=== PATIENT | female | born 1935 | race Caucasian/White ===

== ENCOUNTER 2019-01-13 11:27 | Inpatient (IN) | payer MEDICARE, BC ==
[~2019-01-13] VITALS: Ht 165.1 cm; Wt 49.9 kg
[2019-01-13] MEDS ORDERED: methylPREDNISolone SOD SUCC 125 MG/2 ML VL IV ONE (11:45)
[2019-01-13] MEDS ORDERED: ALBUTEROL SULF 2.5 MG/0.5ML(0.5%) NEB SOLN HHN ONE (11:45)
[2019-01-13] MEDS ORDERED: IPRATROPIUM BROM 0.5 MG/2.5ML INH SOL HHN ONE (11:45)
[2019-01-13 12:32] LABS: Basophils # (auto) 0 uL; Eosinophils # (auto) 0 uL; Monocytes # (auto) 0.5 uL; Neutrophils # (auto) 3.4 uL; White Blood Cell 4.9 10^3/uL (4.4-10.8)
[2019-01-13 12:33] LABS: Basophils % (auto) 0.8 % (0.0-2.0); Eosinophils % (auto) 0.6 % (0.0-7.0); Hematocrit 36.9 % (36.0-46.0); Hemoglobin 13.1 g/dL (12.2-16.2); Lymphocytes % (auto) 19.4 % (10.0-50.0); Mean Corpuscular Hemoglobin 35.2 pg (28.0-32.0); Mean Corpuscular Hgb Conc. 35.7 g/dL (32.0-36.0); Mean Corpuscular Volume 98.7 fL (80.0-100.0); Monocytes % (auto) 10.7 % (0.0-12.0); Neutrophils % (auto) 68.5 % (37.0-80.0); Platelet Count (auto) 239 10^3/uL (140-450); Red Blood Cells 3.74 10^6/uL (4.0-5.20); Red Cell Distribution Width 13.9 % (11.8-14.3)
[2019-01-13 12:52] LABS: Alanine Aminotransferase 19 U/L (13-56); Anion Gap 6 (5-15); Aspartate Aminotransferase 14 U/L (15-37); Blood Urea Nitrogen 11 mg/dL (7-18); Calcium 9.1 mg/dL (8.5-10.1); Carbon Dioxide 28 mmol/L (21-32); Chloride 98 mmol/L (98-107); GFR African American 136 mL/min; GFR Non-African American 112 mL/min; Glucose 84 mg/dL (74-106); Potassium 4.1 mmol/L (3.5-5.1); Sodium 132 mmol/L (136-145)
[2019-01-13 12:57] LABS: Alkaline Phosphatase 89 U/L (45-117); Bilirubin, Total 0.3 mg/dL (0.2-1.0); Total Protein 7.7 g/dL (6.4-8.2)
[2019-01-13 13:33] LABS: Urine WBC None Seen /hpf (0 - 5)
[2019-01-13 13:40] LABS: Urine Bacteria NONE SEEN /hpf (None Seen); Urine Blood Negative /uL (Negative); Urine Specific Gravity 1.005 (1.001-1.035)
[2019-01-13] MEDS ORDERED: TEMAZEPAM 15 MG CAP PO PRN (13:45)
[2019-01-13] MEDS ORDERED: PROMETHAZINE HCL 25 MG/ML 1ML IV PRN (13:45)
[2019-01-13] MEDS ORDERED: LACTULOSE 20Gm/30ML SOLN PO PRN (13:45)
[2019-01-13] MEDS ORDERED: ACETAMINOPHEN 500 MG TAB PO PRN (13:45)
[2019-01-13] MEDS ORDERED: NITROGLYCERIN 0.4 MG SL TAB SL PRN (13:45)
[2019-01-13] MEDS ORDERED: ALBUTEROL SULF 2.5 MG/0.5ML(0.5%) NEB SOLN NEB PRN (13:45)
[2019-01-13] MEDS ORDERED: MORPHINE SULF INJ 2 MG/ML SYRINGE 1ML IV PRN (13:45)
[2019-01-13] MEDS ORDERED: traMADol HCL 50 MG TAB PO PRN (13:45)
[2019-01-13] MEDS: DOXYCYCLINE 100MG/250ML 250 ML IV SCH (14:14)
[2019-01-13] MEDS: SODIUM CHLORIDE 0.9% 1,000 ML IV SCH (14:14)
[2019-01-13 15:06] VITALS: BP 126/74
[2019-01-13] MEDS: LORazepam 0.5 MG TAB PO PRN (16:46)
[2019-01-13 17:20] VITALS: BP 122/74
[2019-01-13 17:27] VITALS: BP 122/74
[2019-01-13] MEDS: methylPREDNISolone SOD SUCC 40 MG/ML VL IV SCH (17:34)
[2019-01-13] MEDS ORDERED: BUDE2SUS3 IN (17:53)
[2019-01-13] MEDS ORDERED: ALPR0.254 PO (17:53)
[2019-01-13] MEDS ORDERED: MIRT30TA OR (17:53)
[2019-01-13] MEDS ORDERED: METH118C PO (17:53)
[2019-01-13] MEDS ORDERED: ALBU2TAB4 PO (17:53)
[2019-01-13] MEDS ORDERED: POTA1TAB61 PO (17:53)
[2019-01-13] MEDS ORDERED: DILT30TA24 PO (17:53)
[2019-01-13] MEDS ORDERED: MULT-228 PO (17:53)
[2019-01-13] MEDS ORDERED: OMEP20TA PO (17:53)
[2019-01-13] MEDS ORDERED: TIOTCAP IN (17:53)
[2019-01-13] MEDS: ALBUTEROL SULF 2.5 MG/0.5ML(0.5%) NEB SOLN NEB SCH (18:56)
[2019-01-13] MEDS: IPRATROPIUM BROM 0.5 MG/2.5ML INH SOL NEB SCH (18:56)
[2019-01-13 22:24] VITALS: BP 104/64
[2019-01-14] MEDS: methylPREDNISolone SOD SUCC 40 MG/ML VL IV SCH ×5 (00:15→23:43)
[2019-01-14] MEDS: LORazepam 0.5 MG TAB PO PRN ×3 (00:32→16:48)
[2019-01-14] MEDS: ALBUTEROL SULF 2.5 MG/0.5ML(0.5%) NEB SOLN NEB SCH ×4 (00:53→19:46)
[2019-01-14] MEDS: IPRATROPIUM BROM 0.5 MG/2.5ML INH SOL NEB SCH ×4 (00:53→19:46)
[2019-01-14 05:06] VITALS: BP 139/87
[2019-01-14] MEDS: DOXYCYCLINE 100MG/250ML 250 ML IV SCH ×2 (06:33→15:18)
[2019-01-14] MEDS: SODIUM CHLORIDE 0.9% 1,000 ML IV SCH ×2 (06:34→16:47)
[2019-01-14 09:09] VITALS: BP 146/89
[2019-01-14] MEDS: ENOXAPARIN SOD 40 MG/0.4 ML SYRINGE SC SCH (09:42)
[2019-01-14] MEDS: PANTOPRAZOLE 40 MG TAB PO SCH (09:42)
[2019-01-14 13:02] VITALS: BP 142/97
[2019-01-14 17:00] VITALS: BP 142/94
[2019-01-14 22:38] VITALS: BP 141/89
[2019-01-15] MEDS: IPRATROPIUM BROM 0.5 MG/2.5ML INH SOL NEB SCH ×4 (01:09→18:27)
[2019-01-15] MEDS: ALBUTEROL SULF 2.5 MG/0.5ML(0.5%) NEB SOLN NEB SCH ×4 (01:09→18:27)
[2019-01-15] MEDS: DOXYCYCLINE 100MG/250ML 250 ML IV SCH ×2 (01:11→15:18)
[2019-01-15] MEDS: LORazepam 0.5 MG TAB PO PRN ×3 (01:24→16:05)
[2019-01-15 04:53] VITALS: BP 133/92
[2019-01-15] MEDS: methylPREDNISolone SOD SUCC 40 MG/ML VL IV SCH ×4 (05:38→23:48)
[2019-01-15] MEDS: SODIUM CHLORIDE 0.9% 1,000 ML IV SCH ×2 (05:44→18:37)
[2019-01-15 09:09] VITALS: BP 127/72
[2019-01-15] MEDS: PANTOPRAZOLE 40 MG TAB PO SCH (09:26)
[2019-01-15] MEDS: ENOXAPARIN SOD 40 MG/0.4 ML SYRINGE SC SCH (09:27)
[2019-01-15 13:00] VITALS: BP 139/96
[2019-01-15 16:14] VITALS: BP 152/94
[2019-01-15 21:30] VITALS: BP 121/91
[2019-01-16] MEDS: ALBUTEROL SULF 2.5 MG/0.5ML(0.5%) NEB SOLN NEB SCH ×4 (01:25→18:19)
[2019-01-16] MEDS: IPRATROPIUM BROM 0.5 MG/2.5ML INH SOL NEB SCH ×4 (01:25→18:19)
[2019-01-16] MEDS: DOXYCYCLINE 100MG/250ML 250 ML IV SCH ×2 (02:10→13:55)
[2019-01-16 05:00] VITALS: BP 133/94
[2019-01-16] MEDS: methylPREDNISolone SOD SUCC 40 MG/ML VL IV SCH ×3 (05:17→21:55)
[2019-01-16] MEDS: LORazepam 0.5 MG TAB PO PRN ×2 (06:44→13:56)
[2019-01-16 06:48] LABS: Basophils # (auto) 0 uL; Basophils % (auto) 0.1 % (0.0-2.0); Eosinophils # (auto) 0 uL; Hematocrit 40.5 % (36.0-46.0); Hemoglobin 14.1 g/dL (12.2-16.2); Lymphocytes # (auto) 0.6 uL; Lymphocytes % (auto) 7.5 % (10.0-50.0); Mean Corpuscular Hgb Conc. 34.7 g/dL (32.0-36.0); Mean Corpuscular Volume 94.9 fL (80.0-100.0); Monocytes # (auto) 0.5 uL; Neutrophils # (auto) 6.6 uL; Neutrophils % (auto) 85.4 % (37.0-80.0); Platelet Count (auto) 279 10^3/uL (140-450); Red Blood Cells 4.26 10^6/uL (4.0-5.20); Red Cell Distribution Width 14.1 % (11.8-14.3); White Blood Cell 7.7 10^3/uL (4.4-10.8)
[2019-01-16 07:23] LABS: Calcium 9.2 mg/dL (8.5-10.1); Potassium 3.6 mmol/L (3.5-5.1)
[2019-01-16 07:26] LABS: BUN/Creatinine Ratio 32.3
[2019-01-16 08:00] VITALS: BP 133/95
[2019-01-16] MEDS: SODIUM CHLORIDE 0.9% 1,000 ML IV SCH ×2 (08:23→21:55)
[2019-01-16] MEDS: ENOXAPARIN SOD 40 MG/0.4 ML SYRINGE SC SCH (09:19)
[2019-01-16] MEDS: PANTOPRAZOLE 40 MG TAB PO SCH (09:19)
[2019-01-16 12:27] VITALS: BP 151/94
[2019-01-16 14:48] VITALS: BP 151/94
[2019-01-16 16:56] VITALS: BP 153/93
[2019-01-16 21:44] VITALS: BP 130/81
[2019-01-17] MEDS: ALBUTEROL SULF 2.5 MG/0.5ML(0.5%) NEB SOLN NEB SCH ×4 (00:17→18:19)
[2019-01-17] MEDS: IPRATROPIUM BROM 0.5 MG/2.5ML INH SOL NEB SCH ×4 (00:17→18:19)
[2019-01-17] MEDS: DOXYCYCLINE 100MG/250ML 250 ML IV SCH ×2 (01:25→13:31)
[2019-01-17 04:22] VITALS: BP 142/107
[2019-01-17] MEDS: LORazepam 0.5 MG TAB PO PRN (04:33)
[2019-01-17] MEDS: methylPREDNISolone SOD SUCC 40 MG/ML VL IV SCH ×3 (05:05→21:04)
[2019-01-17 07:47] LABS: BUN/Creatinine Ratio 39.6; Calcium 8.6 mg/dL (8.5-10.1); INR 1.02 (0.9-1.15); Partial Thromboplastin Time 22.9 sec (23.78-33.04); Potassium 3.6 mmol/L (3.5-5.1); Prothrombin Time 10.9 sec (9.27-12.13)
[2019-01-17 08:00] VITALS: BP 133/89
[2019-01-17] MEDS: SODIUM CHLORIDE 0.9% 1,000 ML IV SCH (08:48)
[2019-01-17 09:00] VITALS: BP 146/94
[2019-01-17] MEDS: PANTOPRAZOLE 40 MG TAB PO SCH (09:33)
[2019-01-17] MEDS ORDERED: LORazepam 2MG/ML-1ML VIAL IV ONE (11:00)
[2019-01-17 13:00] VITALS: BP 133/89
[2019-01-17 17:00] VITALS: BP 156/89
[2019-01-17] MEDS ORDERED: METH-928 PO (18:37)
[2019-01-17] MEDS ORDERED: ASCO500T11 PO (18:37)
[2019-01-17] MEDS: METHENAMINE HIPPURATE 1 GM PO SCH (21:04)
[2019-01-17] MEDS: LORazepam 2MG/ML-1ML VIAL IV PRN (21:05)
[2019-01-17] MEDS: DOXYCYCLINE 100 MG TAB/CAP PO SCH (21:05)
[2019-01-17 21:44] VITALS: BP 147/96
[2019-01-17] MEDS ORDERED: MIRTAZAPINE 30 MG TAB PO SCH (22:00)
[2019-01-18] MEDS: ALBUTEROL SULF 2.5 MG/0.5ML(0.5%) NEB SOLN NEB SCH ×3 (00:12→13:10)
[2019-01-18] MEDS: IPRATROPIUM BROM 0.5 MG/2.5ML INH SOL NEB SCH ×3 (00:12→13:10)
[2019-01-18] MEDS: SODIUM CHLORIDE 0.9% 1,000 ML IV SCH (00:56)
[2019-01-18 05:03] VITALS: BP 146/76
[2019-01-18] MEDS: methylPREDNISolone SOD SUCC 40 MG/ML VL IV SCH (05:18)
[2019-01-18] MEDS: LORazepam 2MG/ML-1ML VIAL IV PRN (05:18)
[2019-01-18 09:00] VITALS: BP 129/79
[2019-01-18] MEDS ORDERED: POTASSIUM CHL 10 Meq TABLET PO SCH (10:00)
[2019-01-18] MEDS ORDERED: NICOTINE 7MG/24HR TOPICAL PATCH TD SCH (10:00)
[2019-01-18] MEDS ORDERED: DILTIAZEM 300 MG PO SCH (10:00)
[2019-01-18] MEDS ORDERED: ASCORBIC ACID 500 MG TAB PO SCH (10:00)
[2019-01-18] MEDS: METHENAMINE HIPPURATE 1 GM PO SCH (10:00)
[2019-01-18] MEDS ORDERED: MULTIPLE VITAMIN TAB PO SCH (10:00)
[2019-01-18] MEDS: DOXYCYCLINE 100 MG TAB/CAP PO SCH (10:41)
[2019-01-18] MEDS: PANTOPRAZOLE 40 MG TAB PO SCH (10:42)
[2019-01-18 13:00] VITALS: BP 150/98
== END 2019-01-18 16:27 | DRG 189 ==
LOC: ER 11:36 → TELE 13:44 → TELE-CENTR 17:17
PROVIDERS: ADMIT Internal Medicine; ATTEND Internal Medicine
DX: J96.20 Acute and chronic respiratory failure, unspecified whether with hypoxia or hypercapnia (principal); E87.1 Hypo-osmolality and hyponatremia; J98.11 Atelectasis; J44.1 Chronic obstructive pulmonary disease with (acute) exacerbation; J43.9 Emphysema, unspecified; I10 Essential (primary) hypertension; I70.0 Atherosclerosis of aorta; Z66 Do not resuscitate; F41.9 Anxiety disorder, unspecified; F17.210 Nicotine dependence, cigarettes, uncomplicated; G89.4 Chronic pain syndrome; Z90.710 Acquired absence of both cervix and uterus; Z99.81 Dependence on supplemental oxygen; Z90.89 Acquired absence of other organs; Z98.42 Cataract extraction status, left eye; Z98.41 Cataract extraction status, right eye
CPT/HCPCS: 36415; 71045; 71250; 80048; 80053; 81001; 83605; 83735; 83880; 84484; 85025; 85610; 85730; 87040; 87070; 87205; 93005; 94640; 94644; 94761; 96361; 96374; 96375; 97116; 97163; 97530; G0378; J3490

== ENCOUNTER 2019-07-20 10:44 | Inpatient (IN) | payer MEDICARE, BC ==
[~2019-07-20] VITALS: Ht 165.1 cm; Wt 48.6 kg
[~2019-07-20 10:44] MED LIST: ALBU2TAB4 PO; ALPR0.254 PO; ASCO500T11 PO; BUDE2SUS3 IN; DILT30TA24 PO; METH-928 PO; MIRT30TA OR; MULT-228 PO; OMEP20TA PO; POTA1TAB61 PO; TIOTCAP IN
[2019-07-20 12:19] LABS: Urine WBC None Seen /hpf (0 - 5)
[2019-07-20 12:39] LABS: Basophils # (auto) 0 uL; Basophils % (auto) 0.7 % (0.0-2.0); Eosinophils # (auto) 0.1 uL; Hematocrit 37.6 % (36.0-46.0); Hemoglobin 13.3 g/dL (12.2-16.2); Lymphocytes # (auto) 0.6 uL; Lymphocytes % (auto) 11.9 % (10.0-50.0); Mean Corpuscular Hemoglobin 33.3 pg (28.0-32.0); Mean Corpuscular Hgb Conc. 35.3 g/dL (32.0-36.0); Mean Corpuscular Volume 94.3 fL (80.0-100.0); Monocytes # (auto) 0.5 uL; Monocytes % (auto) 10.1 % (0.0-12.0); Neutrophils # (auto) 3.9 uL; Neutrophils % (auto) 76.3 % (37.0-80.0); Nucleated Red Blood Cells % 0.1 %; Platelet Count (auto) 280 10^3/uL (140-450); Red Blood Cells 3.99 10^6/uL (4.0-5.20); Red Cell Distribution Width 14.5 % (11.8-14.3)
[2019-07-20 12:54] LABS: INR 0.97 (0.9-1.15); Partial Thromboplastin Time 25.8 sec (23.64-32.05)
[2019-07-20 12:55] LABS: Albumin 3.6 g/dL (3.4-5.0); Calcium 9.2 mg/dL (8.5-10.1)
[2019-07-20 12:59] LABS: Total Protein 7.6 g/dL (6.4-8.2)
[2019-07-20 13:03] LABS: Urine Bacteria NONE SEEN /hpf (None Seen); Urine Blood Negative /uL (Negative); Urine Specific Gravity 1.007 (1.001-1.035)
[2019-07-20 13:03] LABS: Bilirubin, Total 0.3 mg/dL (0.2-1.0)
[2019-07-20] MEDS ORDERED: HYDROcodone-ACET 5/325MG TAB PO PRN (15:00)
[2019-07-20] MEDS ORDERED: ASPirin-EC 81 mg tab PO ONE (15:00)
[2019-07-20] MEDS ORDERED: ACETAMINOPHEN 500 MG TAB PO PRN (15:00)
[2019-07-20] MEDS ORDERED: MORPHINE SULF INJ 2 MG/ML SYRINGE 1ML IV PRN ×2 (15:00)
[2019-07-20] MEDS ORDERED: NITROGLYCERIN 0.4 MG SL TAB SL PRN (15:00)
[2019-07-20] MEDS ORDERED: ALPRAZolam 0.25 MG TAB PO PRN (15:00)
[2019-07-20] MEDS ORDERED: LORazepam 2MG/ML-1ML VIAL IV ONE (15:00)
[2019-07-20] MEDS ORDERED: methylPREDNISolone SOD SUCC 125 MG/2 ML VL IV ONE (15:00)
[2019-07-20] MEDS ORDERED: ONDANSETRON HCL 4 MG/2 ML VIAL IV PRN (15:00)
[2019-07-20] MEDS ORDERED: IPRATROPIUM BROM 0.5 MG/2.5ML INH SOL NEB ONE (16:00)
[2019-07-20] MEDS ORDERED: ALBUTEROL SULF 2.5 MG/0.5ML(0.5%) NEB SOLN NEB ONE (16:00)
--- NOTE | 2019-07-20 17:26 | NUR ---
Telemetry admit from ER [facility] admitted to Telemetry unit after SBAR received via hand off tool. Patient oriented to CARMELA BEARD RN primary RN, unit, room 221B, bed, and unit policies regarding patient care and visiting hours. Patient now on continuous telemetry monitoring, tele box # 38 Sinus Rhythm at 73. Patient ambulated to bed with standby, minimum assist, placed on bedside oxygen at 3 LPM via nasal cannula, saturating at 98%, weighed by bedscale and encouraged to call if they need something. All questions and concerns addressed, patient verbalized understanding. Bed in low and locked position, rails up x2, no-slip socks on, bedside commode within reach.
--- NOTE | 2019-07-20 18:10 | NUR ---
CALL TO [facility] REC SPOKE TO MERLINE AT [phone], STATED SHE WILL FAX OVER UPDATED [facility] REC INFORMATION TO NURSES STATION.
[2019-07-20] MEDS: IPRATROPIUM BROM 0.5 MG/2.5ML INH SOL NEB SCH ×2 (19:17→22:27)
--- NOTE | 2019-07-20 19:17 | NUR ---
Opening Shift Note Assumed care of patient, she is resting in bed. No S/S of distress/SOB or pain. Call light is within reach, side rails up x2, bed is in lowest position. Will update on POC and to call for assist PRN when awake. Will continue to monitor for changes Q1hr and PRN.
[2019-07-20] MEDS: BUDESONIDE (INHALATION) 0.5 MG/2 ML NEB NEB SCH (19:18)
[2019-07-20] MEDS: ALBUTEROL SULF 2.5 MG/0.5ML(0.5%) NEB SOLN NEB SCH ×2 (19:18→22:27)
[2019-07-20] MEDS: DOCUSATE SOD 100 MG CAP PO SCH (21:35)
[2019-07-20] MEDS: ATORVASTATIN 20 MG TAB PO SCH (21:35)
[2019-07-20] MEDS: METOPROLOL TARTRATE 25 MG TAB PO SCH (21:36)
[2019-07-20 22:00] VITALS: BP 92/63
[2019-07-20 22:53] VITALS: BP 92/63
[2019-07-21 05:00] VITALS: BP 119/71
[2019-07-21] MEDS: IPRATROPIUM BROM 0.5 MG/2.5ML INH SOL NEB SCH ×5 (06:12→22:20)
[2019-07-21] MEDS: ALBUTEROL SULF 2.5 MG/0.5ML(0.5%) NEB SOLN NEB SCH ×5 (06:12→22:20)
[2019-07-21] MEDS: BUDESONIDE (INHALATION) 0.5 MG/2 ML NEB NEB SCH ×2 (06:12→22:20)
[2019-07-21 06:41] LABS: Potassium 4.5 mmol/L (3.5-5.1)
[2019-07-21 06:43] LABS: INR 0.97 (0.9-1.15); Partial Thromboplastin Time 25.4 sec (23.64-32.05)
[2019-07-21 06:48] LABS: BUN/Creatinine Ratio 33.9; Calcium 9.4 mg/dL (8.5-10.1)
[2019-07-21 06:57] LABS: Eosinophils # (auto) 0 uL; Hematocrit 36.9 % (36.0-46.0); Hemoglobin 12.6 g/dL (12.2-16.2); Mean Corpuscular Hemoglobin 31.7 pg (28.0-32.0); Mean Corpuscular Volume 93.2 fL (80.0-100.0); Monocytes # (auto) 0 uL; Monocytes % (auto) 1.7 % (0.0-12.0); Platelet Count (auto) 286 10^3/uL (140-450); Red Blood Cells 3.96 10^6/uL (4.0-5.20); Red Cell Distribution Width 14.2 % (11.8-14.3); White Blood Cell 2.5 10^3/uL (4.4-10.8)
[2019-07-21 06:58] LABS: Neutrophils % (auto) 85.2 % (37.0-80.0)
[2019-07-21 06:59] LABS: Basophils # (auto) 0 uL; Basophils % (auto) 0.1 % (0.0-2.0); Lymphocytes # (auto) 0.3 uL; Neutrophils # (auto) 1.8 uL
[2019-07-21 08:50] VITALS: BP 145/86
[2019-07-21] MEDS: ASPirin-EC 81 mg tab PO SCH (09:13)
[2019-07-21] MEDS: FAMOTIDINE 20 MG TAB PO SCH (09:13)
[2019-07-21] MEDS: LISINOPRIL 10 MG TAB PO SCH (09:13)
[2019-07-21] MEDS: DOCUSATE SOD 100 MG CAP PO SCH ×2 (09:14→21:29)
[2019-07-21] MEDS: ALPRAZolam 0.25 MG TAB PO PRN ×2 (10:00→21:39)
[2019-07-21] MEDS: METOPROLOL TARTRATE 25 MG TAB PO SCH ×2 (10:00→21:31)
[2019-07-21] MEDS ORDERED: AZITHROMYCIN 500MG/ 250ML 250 ML IV ONE (10:15)
[2019-07-21 11:15] LABS: Magnesium 1.9 mg/dL (1.6-2.6)
[2019-07-21 11:26] LABS: Free T4 (Free Thyroxine) 0.99 ng/dL (0.89-1.76)
[2019-07-21 11:27] LABS: Folate (Folic Acid) 16.58 ng/mL (5.38-24)
[2019-07-21] MEDS ORDERED: MAGNESIUM OXIDE 400 MG TAB PO ONE (11:30)
[2019-07-21] MEDS: methylPREDNISolone SOD SUCC 40 MG/ML VL IV SCH ×3 (12:00→23:39)
[2019-07-21 12:10] VITALS: BP 142/96
--- NOTE | 2019-07-21 13:40 | NUR ---
WOUND CARE NOTE: Wound care consult received from nursing. Patient is an 84yo female admitted for acute coronary syndrome. Patient with a history of COPD with home O2, hypertension, CHF and hyperlipidemia. Patient is alert and denies pain. Last Carlos score is 18. Patient noted to have an area of red blanching skin on admission. Reviewed photos with bedside RN, Monica. Patient still with an area of red skin but is slow to davis. Patient is able to reposition self with minimal assistance. No other open wounds noted. RECOMMENDATIONS: Dietary consult; Turn q2hrs; Nursing to cleanse buttocks with mild soap and water, pat dry, apply ZGUARD BID/PRN soiling; wound care team to follow. Addendum: 07/21/19 at 1716 by MICHELLE BERG RN Amended: Links added.
[2019-07-21 16:51] VITALS: BP 134/91
[2019-07-21] MEDS ORDERED: CYANOCOBALAMIN 500 MCG TAB PO ONE (18:00)
--- NOTE | 2019-07-21 21:00 | NUR ---
Incentive Spirometer IS given to pt and instructed on how to use. Pt verbalized understanding and returned demonstration.
[2019-07-21 21:15] VITALS: BP 115/78
[2019-07-21] MEDS: ATORVASTATIN 20 MG TAB PO SCH (21:29)
[2019-07-21] MEDS: MAGNESIUM OXIDE 400 MG TAB PO SCH (21:31)
--- NOTE | 2019-07-21 22:20 | NUR ---
Sputum sample sent to lab.
[2019-07-22 04:35] VITALS: BP 118/82
[2019-07-22] MEDS: methylPREDNISolone SOD SUCC 40 MG/ML VL IV SCH ×4 (05:37→23:46)
[2019-07-22] MEDS: BUDESONIDE (INHALATION) 0.5 MG/2 ML NEB NEB SCH ×2 (05:53→22:33)
[2019-07-22] MEDS: IPRATROPIUM BROM 0.5 MG/2.5ML INH SOL NEB SCH ×5 (05:53→22:33)
[2019-07-22] MEDS: ALBUTEROL SULF 2.5 MG/0.5ML(0.5%) NEB SOLN NEB SCH ×5 (05:53→22:33)
--- NOTE | 2019-07-22 06:04 | NUR ---
IV Placement Obtained 2nd IV access for stress test. Placed a 22ga Iv in the right forearm after all questions and concerns addressed. Pt tolerated the procedure well.
--- NOTE | 2019-07-22 07:30 | NUR ---
Opening Shift Note Assuming care of patient at this time. Patient is awake and alert. Patient denies pain. Bed is locked and lowered with side rails up x2. Patient shows no signs or symptoms of distress or shortness of breath. Instructed patient on the plan of care for today and to call for assistance as needed. Call light within reach. Will continue to round hourly and as needed.
[2019-07-22] MEDS ORDERED: ADENOSINE 40 MG in GIVE UN-DILUTED 0 ML IV STA (08:34)
[2019-07-22 09:00] VITALS: BP 161/105
[2019-07-22] MEDS ORDERED: AZITHROMYCIN 500MG/ 250ML 250 ML IV SCH (10:00)
[2019-07-22] MEDS: FAMOTIDINE 20 MG TAB PO SCH (10:00)
[2019-07-22] MEDS: MAGNESIUM OXIDE 400 MG TAB PO SCH ×2 (10:00→21:43)
[2019-07-22] MEDS: CYANOCOBALAMIN 500 MCG TAB PO SCH (10:00)
[2019-07-22] MEDS: METOPROLOL TARTRATE 25 MG TAB PO SCH ×2 (11:33→21:44)
[2019-07-22] MEDS: LISINOPRIL 10 MG TAB PO SCH (11:35)
[2019-07-22] MEDS: AZITHROMYCIN 250 MG TAB PO SCH (11:36)
[2019-07-22] MEDS: ASPirin-EC 81 mg tab PO SCH (11:37)
--- NOTE | 2019-07-22 11:42 | NUR ---
NUTRITION CONSULT/ASSESSMENT NOTES Please refer to link notes of nutrition screen form filed under the intervention section of the plan of care for further details. Est. Needs based on IBW (57 kg): 1450 kcal to 1700 kcal (25-30 kcal/kgIBW), 57 gms to 68 gms pro (1.0-1.2 gms/kgIBW). Will continue to monitor pertinent labs and reassess nutrient need prn Thank you for this consult. Addendum: 07/22/19 at [address] Amended: Links added.
[2019-07-22 13:00] VITALS: BP 165/102
[2019-07-22] MEDS: hydrALAZINE HCL 20 MG/ML VL IV PRN (13:55)
[2019-07-22] MEDS: ALPRAZolam 0.25 MG TAB PO PRN (13:59)
--- NOTE | 2019-07-22 14:00 | NUR ---
Call from Dr. Duenas Patient is not going to have a stress test today. Patient is able to eat.
--- NOTE | 2019-07-22 14:15 | NUR ---
High Blood Pressure/Anxiety Patient is having a hard time breathing right after scheduled breathing treatment. Oxygen saturation is 95% on 3L NC. Blood Pressure: 184/123. Patient states, "I feel like I am going to ." Gave patient PRN hydralazine and notified Dr. Booker and Dr. Duneas. Received orders from Dr. Booker. Addendum: 07/22/19 at 1850 by ALEX FUNG RN RN Respirations: 32
[2019-07-22] MEDS: DOCUSATE SOD 100 MG CAP PO SCH ×2 (14:19→21:42)
[2019-07-22] MEDS ORDERED: LORazepam 2MG/ML-1ML VIAL IV ONE (14:45)
--- NOTE | 2019-07-22 15:02 | NUR ---
Reassessment Patient has calmed down. No more signs of agitation or distress. Blood pressure is now 160/98. Heart Rate is 69. Notified Dr. Booker. New orders given.
--- NOTE | 2019-07-22 18:38 | NUR ---
Re: Refusing Alarms Patient is refusing to have bed alarm on at this time despite educating it is for her safety.
--- NOTE | 2019-07-22 19:07 | NUR ---
Closing Shift Note Patient is resting in bed with eyes closed. Patient shows no signs of distress. Will endorse care to the security shift manager RN.
--- NOTE | 2019-07-22 19:12 | NUR ---
Bed alarm Patient's bed alarm is going off. Patient is trying to get out of bed, looking for phone. Patient appears confused. While attempting to get patient back in bed, patient appears unsteady on her feet. Gave patient her phone. Will continue to keep patient on bed alarm for safety.
--- NOTE | 2019-07-22 21:00 | NUR ---
receive in bed with bed alarm on is alert to person
[2019-07-22] MEDS: ATORVASTATIN 20 MG TAB PO SCH (21:43)
[2019-07-22 22:00] VITALS: BP 108/66
[2019-07-23] VITALS (7 sets, daily range): BP systolic 103–151; BP diastolic 66–103
[2019-07-23] MEDS: ALBUTEROL SULF 2.5 MG/0.5ML(0.5%) NEB SOLN NEB SCH ×5 (05:49→22:14)
[2019-07-23] MEDS: IPRATROPIUM BROM 0.5 MG/2.5ML INH SOL NEB SCH ×5 (05:49→22:14)
[2019-07-23] MEDS: methylPREDNISolone SOD SUCC 40 MG/ML VL IV SCH ×4 (06:12→23:30)
--- NOTE | 2019-07-23 07:50 | NUR ---
Opening Shift Note Assumed care of patient, awake and alert. No S/S of distress/SOB or pain. Bed is in lowest position, breaks locked, side rails up x2 bed alarm on,call light with in reach. Instructed on POC and to call for assist PRN, will continue to monitor for changes Q1hr and PRN.
[2019-07-23] MEDS: DOCUSATE SOD 100 MG CAP PO SCH ×2 (09:46→21:34)
[2019-07-23] MEDS: CYANOCOBALAMIN 500 MCG TAB PO SCH (09:48)
[2019-07-23] MEDS: MAGNESIUM OXIDE 400 MG TAB PO SCH ×2 (09:48→21:34)
[2019-07-23] MEDS: FAMOTIDINE 20 MG TAB PO SCH (09:49)
[2019-07-23] MEDS: AZITHROMYCIN 250 MG TAB PO SCH (09:49)
[2019-07-23] MEDS: METOPROLOL TARTRATE 25 MG TAB PO SCH ×2 (09:51→21:33)
[2019-07-23] MEDS: LISINOPRIL 10 MG TAB PO SCH (09:51)
[2019-07-23] MEDS: ASPirin-EC 81 mg tab PO SCH (09:59)
[2019-07-23] MEDS: BUDESONIDE (INHALATION) 0.5 MG/2 ML NEB NEB SCH ×2 (10:09→22:14)
--- NOTE | 2019-07-23 10:39 | NUR ---
Spoke with patients daughter Jennifer, per daughter would prefer rehab placement at [facility] in [place], wants placement up in the [facility].
[2019-07-23] MEDS: ATORVASTATIN 20 MG TAB PO SCH (21:34)
--- NOTE | 2019-07-23 23:00 | NUR ---
RECEIVE IN BED IS WATCHNG TV IS ANXIOUS ENCOURAGE TO RELAX XANAX GIVEN ORDERED
[2019-07-23] MEDS: hydrALAZINE HCL 20 MG/ML VL IV PRN (23:11)
[2019-07-23] MEDS: ALPRAZolam 0.25 MG TAB PO PRN (23:12)
--- NOTE | 2019-07-24 | NUR ---
IS ASLEEP BP 118/78 PULSE 80 O2 SAT 95%
[2019-07-24 04:41] VITALS: BP 110/74
--- NOTE | 2019-07-24 04:50 | NUR ---
IS CONFUSED TO PLACE REORIENT TO SURROUNDINGS MADE COMFORTABLE IS RESTING INMBED
[2019-07-24] MEDS: methylPREDNISolone SOD SUCC 40 MG/ML VL IV SCH ×4 (05:41→23:32)
[2019-07-24] MEDS: ALBUTEROL SULF 2.5 MG/0.5ML(0.5%) NEB SOLN NEB SCH ×5 (06:01→23:10)
[2019-07-24] MEDS: IPRATROPIUM BROM 0.5 MG/2.5ML INH SOL NEB SCH ×5 (06:01→23:10)
--- NOTE | 2019-07-24 08:00 | NUR ---
Opening Shift Note Assumed care of patient, awake, alert and oriented X4, but forgetful. No S/S of distress/SOB or pain. O2 @ 3 LPM via nasal cannula with sats at 93%. Tele# 38, sinus rhythm @ 73 bpm. IV to right forearm, 22 gauge, leaking and removed with clean technique, Angiocath intact. New IV placed to right forearm with clean technique, 20 gauge, patent and saline locked. Instructed on POC and to call for assist PRN, verbalized understanding. Bed locked, in lowest position, call light within reach, will continue to monitor for changes Q1hr and PRN.
[2019-07-24 09:00] VITALS: BP 152/94
--- NOTE | 2019-07-24 09:15 | NUR ---
IV removal IV DC'd with sterile technique to right forearm due to leaking, catheter fully intact. Pressure dressing applied to site. Patient tolerated procedure well. IV insertion IV access obtained, via clean sterile technique by inserting 20 gauge catheter at right forearm after 1 attempt. IV secured properly. No trauma to site. Patient tolerated procedure well.
[2019-07-24] MEDS: BUDESONIDE (INHALATION) 0.5 MG/2 ML NEB NEB SCH ×2 (09:42→18:51)
[2019-07-24] MEDS: ASPirin-EC 81 mg tab PO SCH (10:11)
[2019-07-24] MEDS: DOCUSATE SOD 100 MG CAP PO SCH ×2 (10:11→21:26)
[2019-07-24] MEDS: METOPROLOL TARTRATE 25 MG TAB PO SCH ×2 (10:12→22:00)
[2019-07-24] MEDS: MAGNESIUM OXIDE 400 MG TAB PO SCH ×2 (10:12→21:26)
[2019-07-24] MEDS: LISINOPRIL 10 MG TAB PO SCH (10:13)
[2019-07-24] MEDS: AZITHROMYCIN 250 MG TAB PO SCH (10:13)
[2019-07-24] MEDS: FAMOTIDINE 20 MG TAB PO SCH (10:13)
[2019-07-24] MEDS: CYANOCOBALAMIN 500 MCG TAB PO SCH (10:13)
--- NOTE | 2019-07-24 11:30 | NUR ---
ROUNDS Dr Gavi Alonso at bedside for rounds, new orders received and followed through. Patient and daughter at bedside updated on plan of care, verbalized understanding.
[2019-07-24] MEDS: ALPRAZolam 0.25 MG TAB PO PRN (16:25)
[2019-07-24] MEDS: hydrALAZINE HCL 20 MG/ML VL IV PRN (18:34)
--- NOTE | 2019-07-24 19:17 | NUR ---
Care endorsed to PATRICIA Hernandez, night nurse.
--- NOTE | 2019-07-24 19:18 | NUR ---
RECEIVED PATIENT, AWAKE, ALERT, ORIENTED X3-4. NO S/S OF RESPIRATORY DISTRESS, DENIES ANY PAIN. ORIENTED ON PLAN OF CARE. BED IS LOCKED AND IN LOWEST POSITION, SIDE RAILS UP X2, BED ALARM ON, CALL LIGHT WITHIN REACH. WILL CONTINUE TO MONITOR
[2019-07-24] MEDS: ATORVASTATIN 20 MG TAB PO SCH (21:27)
[2019-07-24 22:47] VITALS: BP 93/61
[2019-07-25] MEDS: ALPRAZolam 0.25 MG TAB PO PRN ×2 (02:56→11:26)
[2019-07-25 05:24] VITALS: BP 92/58
[2019-07-25] MEDS: methylPREDNISolone SOD SUCC 40 MG/ML VL IV SCH ×2 (05:35→12:31)
[2019-07-25] MEDS: BUDESONIDE (INHALATION) 0.5 MG/2 ML NEB NEB SCH (05:56)
[2019-07-25] MEDS: IPRATROPIUM BROM 0.5 MG/2.5ML INH SOL NEB SCH ×3 (05:56→15:33)
[2019-07-25] MEDS: ALBUTEROL SULF 2.5 MG/0.5ML(0.5%) NEB SOLN NEB SCH ×3 (05:56→15:33)
[2019-07-25 06:57] VITALS: BP 118/75
--- NOTE | 2019-07-25 07:35 | NUR ---
CARE ENDORSED TO AM SHIFT RN
--- NOTE | 2019-07-25 07:45 | NUR ---
Opening Shift Note Assumed care of patient, awake, alert, and oriented. No S/S of distress/SOB or pain. Bed in low/locked position, bed rails up x2.. Instructed on POC and to call for assist PRN with call light within reach. Will continue to monitor for changes Q1hr and PRN.
[2019-07-25 09:12] VITALS: BP 125/75
[2019-07-25] MEDS: METOPROLOL TARTRATE 25 MG TAB PO SCH (09:42)
[2019-07-25] MEDS: LISINOPRIL 10 MG TAB PO SCH (09:42)
[2019-07-25] MEDS: DOCUSATE SOD 100 MG CAP PO SCH (09:43)
[2019-07-25] MEDS: FAMOTIDINE 20 MG TAB PO SCH (09:43)
[2019-07-25] MEDS: AZITHROMYCIN 250 MG TAB PO SCH (09:43)
[2019-07-25] MEDS: CYANOCOBALAMIN 500 MCG TAB PO SCH (09:43)
[2019-07-25] MEDS: MAGNESIUM OXIDE 400 MG TAB PO SCH (09:44)
[2019-07-25] MEDS: ASPirin-EC 81 mg tab PO SCH (09:44)
--- NOTE | 2019-07-25 12:06 | NUR ---
STATUS CHANGE TO MED SURG SPOKE WITH DR HART, ORDER RECEIVED TO DOWNGRADE PATIENT TO MED SURG STATUS, UPDATED PRIMARY RN MARK
[2019-07-25 12:56] VITALS: BP 114/63
--- NOTE | 2019-07-25 13:02 | NUR ---
ENDORSED CARE ENDORSED CARE TO PATRICIA QUIROGA
[2019-07-25 13:12] VITALS: BP 114/63
--- NOTE | 2019-07-25 15:44 | NUR ---
assessment Patient is a 84 year old female who is alert and oriented. Prior to admission patient lived at [facility] and functioned with assistance of staff. Per patients son Caleb who is at bedside he believes patient is at level 2 at [place]. Patients PCP is Dr Booker. Patient has 02, fww, and a wheelchair for home use. I informed patient and Art patient has a ss consult for SNF placement. Both agree to SNF. Per Art he will transport patient to [facility] and patient agreed. I informed patient she has a right to speak to a elementary school social worker regarding all care. I informed patient she has a right to participate in any and all discharge planning. Patient does not have a POA and advanced directive. I have offered patient information on POA and advanced directives. I informed the patient the advantages and benefits of having an Advanced Directive. Patient verbalized understanding and agreed to discharge plan. Addendum: 07/25/19 at 1549 by Yaima LORA Amended: Links added.
--- NOTE | 2019-07-25 15:46 | NUR ---
CALLED [facility], REPORT GIVEN TO PATRICIA SANTOS. FACILITY AWARE PATIENT IS ON CONTACT ISOLATION FOR MRSA SPUTUM, PATIENT GOING TO ROOM 11 PER GAYATHRI OLSEN.
--- NOTE | 2019-07-25 16:15 | NUR ---
D/C Planning Per consult for SNF placement for rehab. Pt madeline Calles was at bedside when information and choice letter was given to Pt. Pt requested [facility]. Pt verbalize understanding. Contacted [facility] Ph:( [phone]) Fax:) faxed medical records. Per Cecy from [facility] Pt has been accepted to Room [address] Keys[address] PATRICIA Guzmán advised me Pt madeline Calles will be transporting Pt to facility. Spoke to Pt and madeline Calles at bedside regarding transportation and Pt madeline Calles advised me he will be taking Pt to facility and stated he has a portable oxygen. Pt and madeline Calles verbalize understanding. Addendum: 07/25/19 at 1631 by VELMA ARECHIGA Amended: Links added.
== END 2019-07-25 16:03 | DRG 177 ==
LOC: ER 10:44 → TELE 10:45 → TELE-CENTR 17:23 → CENTRAL 07-25 12:08
PROVIDERS: ADMIT Nurse Practitioner Acute Care; ATTEND Internal Medicine
DX: J15.212 Pneumonia due to Methicillin resistant Staphylococcus aureus (principal); J96.20 Acute and chronic respiratory failure, unspecified whether with hypoxia or hypercapnia; J44.1 Chronic obstructive pulmonary disease with (acute) exacerbation; I24.9 Acute ischemic heart disease, unspecified; I50.32 Chronic diastolic (congestive) heart failure; E87.1 Hypo-osmolality and hyponatremia; J44.0 Chronic obstructive pulmonary disease with (acute) lower respiratory infection; F41.9 Anxiety disorder, unspecified; J20.9 Acute bronchitis, unspecified; L89.151 Pressure ulcer of sacral region, stage 1; Z96.653 Presence of artificial knee joint, bilateral; I11.0 Hypertensive heart disease with heart failure; E78.5 Hyperlipidemia, unspecified; F03.90 Unspecified dementia, unspecified severity, without behavioral disturbance, psychotic disturbance, mood disturbance, and anxiety; Z88.7 Allergy status to serum and vaccine; Z99.81 Dependence on supplemental oxygen; Z90.710 Acquired absence of both cervix and uterus; Z90.13 Acquired absence of bilateral breasts and nipples; Z91.041 Radiographic dye allergy status
CPT/HCPCS: 36415; 71045; 78452; 80048; 80053; 80061; 81001; 82607; 82746; 83036; 83735; 83880; 84439; 84443; 84484; 85025; 85610; 85730; 86141; 87070; 87077; 87081; 87186; 87205; 93005; 93017; 93306; 94640; 96365; 96375; 97116; 97530; G0378; J0153; J2405

== ENCOUNTER → 2019-10-28 | Outpatient (CLI) | payer MEDICARE, BC ==
[2019-10-28 12:48] LABS: Urine Bacteria FEW /hpf (None Seen); Urine Blood Negative /uL (Negative); Urine Specific Gravity 1.005 (1.001-1.035); Urine WBC 2 /hpf (0 - 5)
== END | disposition home or self-care (01) ==
LOC: LAB 12:13
PROVIDERS: ATTEND Internal Medicine
DX: N39.0 Urinary tract infection, site not specified (principal)
CPT/HCPCS: 81001; 87086; 87088; 87186